=== PATIENT | female | born 1995 | race African-American/Black ===

== ENCOUNTER 2022-11-02 11:18 | Emergency (ER) | payer MEDICAID ==
[~2022-11-02] VITALS: Ht 170.2 cm; Wt 79.0 kg
[2022-11-02 11:25] VITALS: BP 158/125
[2022-11-02] MEDS ORDERED: LORAZEPAM 0.5MG TABLET PO ONE (12:30)
[2022-11-02 15:31] LABS: BASOPHILS % 0.5 % (0.0-2.0); EOSINOPHILS % 0.8 % (0.0-5.0); HEMATOCRIT. 37.8 % (36.0-48.0); HEMOGLOBIN. 12.1 g/dL (12.0-16.0); LYMPHOCYTES % 39.5 % (20.0-50.0); MEAN CORPUSCULAR HEMOGLOBIN 28.9 pg (28.0-32.0); MEAN CORPUSCULAR VOLUME 90.4 fL (81.0-99.0); MEAN PLATELET VOLUME 8.8 fl (7.4-10.4); MONOCYTES % 11.1 % (2.0-8.0); NEUTROPHILS % 48.1 % (40.0-76.0); PLATELET 263 x1000/uL (130-400); RED BLOOD CELL COUNT 4.18 mill/uL (4.2-5.4); RED CELL DISTRIBUTION WIDTH 13.8 % (11.6-14.6)
[2022-11-02 15:50] LABS: CHLORIDE 108 mEq/L (98-107)
[2022-11-02] MEDS ORDERED: METH-653 MT (20:36)
[2022-11-02] MEDS ORDERED: IBUP-2029 MT (20:36)
[2022-11-02] MEDS ORDERED: IOHEXOL-350 100 ML BOTTLE ONE (20:45)
== END 2022-11-02 20:40 | disposition home or self-care (01) ==
LOC: ER 11:18
DX: M54.50 Low back pain, unspecified (principal); F41.9 Anxiety disorder, unspecified
CPT/HCPCS: 36415; 71045; 71275; 80053; 81025; 84484; 85025; 85379; 93005; 99285; Q9967

== ENCOUNTER 2022-11-04 14:53 | Emergency (ER) | payer MEDICAID ==
[~2022-11-04] VITALS: Ht 165.1 cm; Wt 75.0 kg
[~2022-11-04 14:53] MED LIST: IBUP-2029 MT; METH-653 MT
[2022-11-04 15:03] VITALS: BP 141/90
[2022-11-04 19:48] LABS: BASOPHILS % 0.4 % (0.0-2.0); EOSINOPHILS % 0.3 % (0.0-5.0); HEMATOCRIT. 34.9 % (36.0-48.0); HEMOGLOBIN. 11.4 g/dL (12.0-16.0); LYMPHOCYTES % 34.4 % (20.0-50.0); MEAN CORPUSCULAR VOLUME 88.9 fL (81.0-99.0); MEAN PLATELET VOLUME 8.6 fl (7.4-10.4); MONOCYTES % 6.8 % (2.0-8.0); NEUTROPHILS % 58.1 % (40.0-76.0); PLATELET 269 x1000/uL (130-400); RED BLOOD CELL COUNT 3.93 mill/uL (4.2-5.4); RED CELL DISTRIBUTION WIDTH 13.6 % (11.6-14.6)
[2022-11-04 19:56] LABS: CHLORIDE 106 mEq/L (98-107)
== END 2022-11-04 22:54 | disposition home or self-care (01) ==
LOC: ER 14:53
DX: M79.605 Pain in left leg (principal)
CPT/HCPCS: 36415; 80053; 83880; 85025; 85379; 93971; 99284

== ENCOUNTER 2023-07-19 09:48 | Emergency (ER) | payer MEDICAID ==
[~2023-07-19] VITALS: Ht 170.2 cm; Wt 82.0 kg
[2023-07-19 09:54] VITALS: TEMP 99; O2SAT 100
[2023-07-19 10:35] LABS: CLARITY URINE CLEAR (CLEAR); COLOR URINE YELLOW (YELLOW); GLUCOSE URINE NEGATIVE (NEGATIVE); KETONES URINE NEGATIVE (NEGATIVE); LEUKOCYTE ESTERASE URINE 2+ (NEGATIVE); NITRITE URINE NEGATIVE (NEGATIVE); OCCULT BLOOD URINE TRACE (NEGATIVE); PROTEIN URINE NEGATIVE (NEGATIVE); UROBILINOGEN URINE 0.2 E.U./dL (0.2-1.0)
[2023-07-19 11:11] LABS: SQUAMOUS EPITHELIAL CELL URINE 3+ /lpf (RARE/1+)
[2023-07-19 11:12] LABS: BACTERIA URINE 1+; RBC URINE 0-2 /hpf (0-2)
[2023-07-19 11:20] LABS: WBC URINE 25-50 /hpf (0-2)
[2023-07-19] MEDS ORDERED: CEFP200T13 MT ×2 (11:21)
[2023-07-19] MEDS ORDERED: CEFP100T8 MT (11:23)
[2023-07-19 11:39] VITALS: BP 137/83; PULSE 78; RESP 20
== END 2023-07-19 11:40 | disposition home or self-care (01) ==
LOC: ER 09:48
DX: N39.0 Urinary tract infection, site not specified (principal)
CPT/HCPCS: 81003; 81025; 87077; 87186; 99283

== ENCOUNTER 2024-01-10 16:32 | Emergency (ER) | payer MEDICAID ==
[~2024-01-10] VITALS: Ht 170.2 cm; Wt 81.0 kg
[~2024-01-10 16:32] MED LIST changes: +CEFP100T8 MT
[2024-01-10 16:46] VITALS: O2SAT 100
[2024-01-10 18:10] LABS: CLARITY URINE CLEAR (CLEAR); COLOR URINE YELLOW (YELLOW); GLUCOSE URINE NEGATIVE (NEGATIVE); KETONES URINE TRACE (NEGATIVE); LEUKOCYTE ESTERASE URINE NEGATIVE (NEGATIVE); NITRITE URINE NEGATIVE (NEGATIVE); OCCULT BLOOD URINE NEGATIVE (NEGATIVE); PROTEIN URINE TRACE (NEGATIVE); SPECIFIC GRAVITY URINE 1.026 (1.005-1.030)
[2024-01-10 18:19] LABS: BASOPHILS % 0.6 % (0.0-2.0); EOSINOPHILS % 0.4 % (0.0-5.0); HEMATOCRIT. 35.6 % (36.0-48.0); HEMOGLOBIN. 11.7 g/dL (12.0-16.0); LYMPHOCYTES % 35.9 % (20.0-50.0); MEAN CORPUSCULAR HEMOGLOBIN 29.5 pg (28.0-32.0); MEAN CORPUSCULAR HGB CONC 32.8 g/dL (31.0-37.0); MEAN CORPUSCULAR VOLUME 89.8 fL (81.0-99.0); MEAN PLATELET VOLUME 8.8 fl (7.4-10.4); NEUTROPHILS % 51.1 % (40.0-76.0); PLATELET 253 x1000/uL (130-400); RED BLOOD CELL COUNT 3.97 mill/uL (4.2-5.4); RED CELL DISTRIBUTION WIDTH 13.6 % (11.6-14.6); WHITE BLOOD COUNT 7.7 x1000/uL (4.5-11.0)
[2024-01-10 18:30] LABS: PROTHROMBIN TIME 11.4 sec (9.6-11.0)
[2024-01-10 18:34] LABS: ALANINE AMINOTRANSFERASE 19 IU/L (10-49); ALBUMIN 4.8 g/dL (3.2-4.8); ASPARTATE AMINOTRANSFERASE 20 IU/L (<34); BILIRUBIN TOTAL 0.3 mg/dL (0.1-1.0); CALCIUM 9.5 mg/dL (8.7-10.4); CARBON DIOXIDE 26 mEq/L (21-32); CHLORIDE 107 mEq/L (98-107); CREATININE 0.9 mg/dL (0.6-1.0); GLUCOSE 88 mg/dL (70-105); POTASSIUM 4.2 mEq/L (3.5-5.1); PROTEIN TOTAL 8.6 g/dL (6.0-8.3); SODIUM 139 mEq/L (136-145); UREA NITROGEN BLOOD 8 mg/dL (9-23)
[2024-01-10 18:37] LABS: TROPONIN I HIGH SENSITIVITY < 4 ng/L (3.0-34)
[2024-01-10 19:01] LABS: BACTERIA URINE 1+; RBC URINE 0-2 /hpf (0-2); SQUAMOUS EPITHELIAL CELL URINE 1+ /lpf (RARE/1+); WBC URINE 0-2 /hpf (0-2)
[2024-01-10 19:55] VITALS: BP 132/78; PULSE 90; RESP 18; TEMP 98.2
== END 2024-01-10 19:59 | disposition home or self-care (01) ==
LOC: ER 16:32
DX: R07.9 Chest pain, unspecified (principal); R00.2 Palpitations
CPT/HCPCS: 36415; 71045; 80053; 81003; 81025; 84484; 85025; 85379; 93005; 99285

== ENCOUNTER 2024-02-02 22:42 | Emergency (ER) | payer MEDICAID ==
[~2024-02-02] VITALS: Ht 170.2 cm; Wt 82.0 kg
[2024-02-02 23:38] VITALS: O2SAT 98
[2024-02-03 04:18] VITALS: BP 138/92; PULSE 74; RESP 18; TEMP 98.2
== END 2024-02-03 04:19 | disposition home or self-care (01) ==
LOC: ER 22:42
DX: I10 Essential (primary) hypertension (principal)
CPT/HCPCS: 99281

== ENCOUNTER 2024-05-28 21:57 | Emergency (ER) | payer MEDICAID ==
[~2024-05-28] VITALS: Ht 170.2 cm; Wt 79.0 kg
[2024-05-28 22:54] VITALS: TEMP 98; O2SAT 100
[2024-05-28 23:56] LABS: CLARITY URINE CLEAR (CLEAR); COLOR URINE YELLOW (YELLOW); GLUCOSE URINE NEGATIVE (NEGATIVE); KETONES URINE NEGATIVE (NEGATIVE); LEUKOCYTE ESTERASE URINE NEGATIVE (NEGATIVE); NITRITE URINE NEGATIVE (NEGATIVE); OCCULT BLOOD URINE TRACE (NEGATIVE); PROTEIN URINE NEGATIVE (NEGATIVE); SPECIFIC GRAVITY URINE 1.004 (1.005-1.030); UROBILINOGEN URINE 0.2 E.U./dL (0.2-1.0)
[2024-05-28 23:57] LABS: BASOPHILS % 0.4 % (0.0-2.0); EOSINOPHILS % 0.4 % (0.0-5.0); HEMOGLOBIN. 11.4 g/dL (12.0-16.0); LYMPHOCYTES % 34.9 % (20.0-50.0); MEAN CORPUSCULAR HEMOGLOBIN 29.4 pg (28.0-32.0); MEAN CORPUSCULAR HGB CONC 32.5 g/dL (31.0-37.0); MEAN CORPUSCULAR VOLUME 90.4 fL (81.0-99.0); MONOCYTES % 8.3 % (2.0-8.0); PLATELET 253 x1000/uL (130-400); RED BLOOD CELL COUNT 3.87 mill/uL (4.2-5.4); WHITE BLOOD COUNT 9.2 x1000/uL (4.5-11.0)
[2024-05-29 00:02] LABS: CHLORIDE 102 mEq/L (98-107); POTASSIUM 3.6 mEq/L (3.5-5.1); SODIUM 135 mEq/L (136-145)
[2024-05-29 00:03] LABS: CALCIUM 9.6 mg/dL (8.7-10.4); CARBON DIOXIDE 26 mEq/L (21-32)
[2024-05-29 00:05] LABS: PROTHROMBIN TIME 11.1 sec (9.6-11.0)
[2024-05-29 00:08] LABS: CREATININE 0.8 mg/dL (0.6-1.0); GLUCOSE 108 mg/dL (70-105); UREA NITROGEN BLOOD 7 mg/dL (9-23)
[2024-05-29 00:09] LABS: HCG SCREEN NEGATIVE
[2024-05-29 00:10] LABS: ALANINE AMINOTRANSFERASE 13 IU/L (10-49); ALBUMIN 4.8 g/dL (3.2-4.8); ASPARTATE AMINOTRANSFERASE 15 IU/L (<34); BILIRUBIN DIRECT 0.1 mg/dL (<=3.0)
[2024-05-29 00:11] LABS: BILIRUBIN TOTAL 0.4 mg/dL (0.1-1.0); PROTEIN TOTAL 7.9 g/dL (6.0-8.3)
[2024-05-29 02:07] LABS: BACTERIA URINE NONE SEEN; RBC URINE 0-2 /hpf (0-2); SQUAMOUS EPITHELIAL CELL URINE FEW /lpf (RARE/1+); WBC URINE 0-2 /hpf (0-2)
[2024-05-29 05:01] VITALS: BP 133/87; PULSE 90; RESP 15
== END 2024-05-29 05:07 | disposition home or self-care (01) ==
LOC: ER 21:57
DX: R19.5 Other fecal abnormalities (principal)
CPT/HCPCS: 36415; 80048; 80076; 81003; 84703; 85025; 99283

== ENCOUNTER 2024-10-21 07:20 | Emergency (ER) | payer MEDICAID ==
[~2024-10-21] VITALS: Ht 170.2 cm; Wt 77.0 kg
[2024-10-21 07:29] VITALS: O2SAT 100
[2024-10-21 08:12] LABS: CLARITY URINE CLEAR (CLEAR); COLOR URINE YELLOW (YELLOW); GLUCOSE URINE NEGATIVE (NEGATIVE); KETONES URINE NEGATIVE (NEGATIVE); LEUKOCYTE ESTERASE URINE NEGATIVE (NEGATIVE); NITRITE URINE NEGATIVE (NEGATIVE); OCCULT BLOOD URINE NEGATIVE (NEGATIVE); PH URINE 7.5 (4.5-8.0); PROTEIN URINE NEGATIVE (NEGATIVE); SPECIFIC GRAVITY URINE 1.021 (1.005-1.030)
[2024-10-21] MEDS ORDERED: NITR-87 MT (08:38)
[2024-10-21 09:03] VITALS: BP 122/86; PULSE 76; RESP 17; TEMP 36.83628; O2SAT 99
[2024-10-21] MEDS: NITROFURANTOIN 100MG M/M CAPSULE PO STA (09:12)
== END 2024-10-21 09:14 | disposition home or self-care (01) ==
LOC: ER 07:20
DX: R35.0 Frequency of micturition (principal)
CPT/HCPCS: 81003; 81025; 99283

== ENCOUNTER 2025-04-06 18:05 | Emergency (ER) | payer MEDICAID ==
[~2025-04-06] VITALS: Ht 170.2 cm; Wt 80.0 kg
[~2025-04-06 18:05] MED LIST changes: +NITR-87 MT
[2025-04-06 18:18] VITALS: O2SAT 100
[2025-04-06 19:19] LABS: CLARITY URINE CLEAR (CLEAR); COLOR URINE YELLOW (YELLOW); GLUCOSE URINE NEGATIVE (NEGATIVE); KETONES URINE NEGATIVE (NEGATIVE); LEUKOCYTE ESTERASE URINE NEGATIVE (NEGATIVE); NITRITE URINE NEGATIVE (NEGATIVE); OCCULT BLOOD URINE NEGATIVE (NEGATIVE); PH URINE 7.5 (4.5-8.0); PROTEIN URINE NEGATIVE (NEGATIVE); SPECIFIC GRAVITY URINE 1.021 (1.005-1.030); UROBILINOGEN URINE 0.2 E.U./dL (0.2-1.0)
[2025-04-06 20:07] LABS: BASOPHILS % 0.4 % (0.0-2.0); EOSINOPHILS % 0.3 % (0.0-5.0); HEMATOCRIT. 34.3 % (36.0-48.0); HEMOGLOBIN. 11.3 g/dL (12.0-16.0); LYMPHOCYTES % 39.2 % (20.0-50.0); MEAN CORPUSCULAR HEMOGLOBIN 29.8 pg (28.0-32.0); MEAN CORPUSCULAR VOLUME 90.3 fL (81.0-99.0); MEAN PLATELET VOLUME 8.9 fl (7.4-10.4); MONOCYTES % 9.4 % (2.0-8.0); NEUTROPHILS % 50.7 % (40.0-76.0); PLATELET 246 x1000/uL (130-400); RED CELL DISTRIBUTION WIDTH 13.7 % (11.6-14.6); WHITE BLOOD COUNT 8.1 x1000/uL (4.5-11.0)
[2025-04-06 20:08] VITALS: BP 127/81; PULSE 92; RESP 16; TEMP 36.9; O2SAT 100
[2025-04-06 20:12] LABS: CHLORIDE 107 mEq/L (98-107); POTASSIUM 4.1 mEq/L (3.5-5.1); SODIUM 139 mEq/L (136-145)
[2025-04-06 20:13] LABS: CALCIUM 9.4 mg/dL (8.7-10.4); CARBON DIOXIDE 25 mEq/L (21-32)
[2025-04-06 20:18] LABS: CREATININE 0.8 mg/dL (0.6-1.0); GLUCOSE 101 mg/dL (70-105); UREA NITROGEN BLOOD 12 mg/dL (9-23)
[2025-04-06] MEDS ORDERED: PHEN-815 MT (20:27)
== END 2025-04-06 20:57 | disposition home or self-care (01) ==
LOC: ER 18:05
DX: R35.0 Frequency of micturition (principal); R30.0 Dysuria; Z79.899 Other long term (current) drug therapy
CPT/HCPCS: 36415; 80048; 81003; 81025; 85025; 87077; 87186; 99283

== ENCOUNTER 2025-07-04 18:01 | Emergency (ER) | payer BC, MEDICAID ==
[~2025-07-04] VITALS: Ht 170.2 cm; Wt 80.0 kg
[~2025-07-04 18:01] MED LIST changes: +PHEN-815 MT
[2025-07-04 18:12] VITALS: O2SAT 100
[2025-07-04] MEDS ORDERED: ACET-2708 MT (19:13)
[2025-07-04] MEDS ORDERED: AMOX1TAB16 MT (19:13)
[2025-07-04 19:18] VITALS: BP 148/90; PULSE 84; RESP 16; TEMP 36.8; O2SAT 100
== END 2025-07-04 19:18 | disposition home or self-care (01) ==
LOC: ER 18:01
DX: H66.91 Otitis media, unspecified, right ear (principal); K62.89 Other specified diseases of anus and rectum; Z79.899 Other long term (current) drug therapy
CPT/HCPCS: 99283